=== PATIENT | female | born 1985 | race Two or more races ===

== ENCOUNTER 2023-08-30 02:36 | Emergency (ER) | payer BC, OTHER ==
[~2023-08-30] VITALS: Ht 165.1 cm; Wt 59.0 kg
[2023-08-30] MEDS ORDERED: IV NORMAL SALINE 1000 ML BAG IV ONE ×2 (03:00→04:00)
[2023-08-30] MEDS ORDERED: ONDANSETRON 4 MG/2 ML VIAL IV ONE (03:00)
[2023-08-30] MEDS ORDERED: HYDROMORPHONE 1 MG/1 ML DISP.SYRIN IV ONE (03:00)
[2023-08-30] MEDS ORDERED: HYDROMORPHONE 1 MG/1 ML DISP.SYRIN ONE (03:02)
[2023-08-30] MEDS ORDERED: ONDANSETRON 4 MG/2 ML VIAL ONE (03:02)
[2023-08-30 03:03] LABS: *BILIRUBIN,URIN NEGATIVE (NEGATIVE); *CLARITY,URINE CLEAR (CLEAR); *KETONES,URINE NEGATIVE (NEGATIVE); *PROTEIN,URINE NEGATIVE (NEGATIVE); *UROBILINOGEN,URINE 0.2 E.U./dl (NORMAL); LEUKOCYTE ESTERASE ,URINE NEGATIVE (NEGATIVE); NITRITE, URINE NEGATIVE (NEGATIVE); UGLUCOSE NEGATIVE (NEGATIVE)
[2023-08-30 03:05] LABS: *URINE HCG, QUAL NEGATIVE (NEGATIVE)
[2023-08-30 03:06] LABS: *BLOOD, URINE TRACE INTACT (NEGATIVE); *COLOR,URINE STRAW (YELLOW)
[2023-08-30 03:10] LABS: BASOPHILS % (AUTO) 0.5 % (0.0-2.0); EOSINOPHILS # (AUTO) 0.4 K/uL (0.0-0.7); EOSINOPHILS % (AUTO) 5.4 % (0.0-7.0); HEMATOCRIT 34.4 % (31.2-41.9); HEMOGLOBIN 11.8 g/dL (10.9-14.3); LYMPHOCYTES # (AUTO) 1.4 K/uL (0.8-4.8); LYMPHOCYTES % (AUTO) 16.3 % (20.5-51.5); MEAN CORPUSCULAR HEMOGLOBIN 32.2 uug (24.7-32.8); MEAN CORPUSCULAR HGB CONC 34 g/dL (32.3-35.6); MEAN CORPUSCULAR VOLUME 93.6 fL (75.5-95.3); MONOCYTES # (AUTO) 0.7 K/uL (0.1-1.30); MONOCYTES % (AUTO) 8.6 % (0.0-11.0); NEUTROPHILS # (AUTO) 5.8 K/uL (1.8-8.9); NEUTROPHILS % (AUTO) 69.2 % (38.5-71.5); PLATELET COUNT (AUTO) 227 K/uL (179-408); RED BLOOD CELL COUNT(AUTO) 3.67 MIL/uL (3.63-4.92); RED CELL DISTRIBUTION WIDTH 12.8 % (12.3-17.7); WHITE BLOOD COUNT (AUTO) 8.4 K/uL (3.8-11.8)
[2023-08-30 03:11] LABS: DIFFERENTIAL COMMENT 1
[2023-08-30 03:14] LABS: BACTERIA,URINE NONE SEEN /HPF (NONE SEEN); RBC,URINE 0-3 /HPF (0-3); WBC,URINE NONE SEEN /HPF (0-3)
[2023-08-30 03:15] LABS: SQUAMOUS EPITHELIAL CELL,UR FEW /HPF (NONE SEEN)
[2023-08-30 03:22] LABS: ALBUMIN 3.7 g/dL (3.4-5.0); BILIRUBIN,DIRECT 0.2 mg/dL (0.0-0.2); BILIRUBIN,TOTAL 0.6 mg/dL (0.2-1.0); CALCIUM 8.6 mg/dL (8.5-10.1); CREATININE 0.6 mg/dL (0.6-1.3); POTASSIUM 3.3 mmol/L (3.5-5.1); TOTAL PROTEIN, SERUM 7.3 g/dL (6.4-8.2)
[2023-08-30] MEDS ORDERED: IV NORMAL SALINE 250 ML IV ONE (03:26)
[2023-08-30] MEDS ORDERED: IOHEXOL 300MG/ML 100 ML INFUS..BTL ONE (03:26)
[2023-08-30] MEDS ORDERED: SWABABLE VALVE TRANSFER SET EA MC ONE (03:26)
[2023-08-30] MEDS ORDERED: KETOROLAC TROMETHAMINE 15 MG INJ IVP ONE (10:00)
[2023-08-30] MEDS ORDERED: METOCLOPRAMIDE HCL 10 MG/2 ML VIAL IV ONE (10:00)
[2023-08-30] MEDS ORDERED: METOCLOPRAMIDE HCL 10 MG/2 ML VIAL ONE (10:17)
[2023-08-30] MEDS ORDERED: KETOROLAC TROMETHAMINE 15 MG INJ ONE (10:17)
[2023-08-30 12:01] VITALS: BP 110/59; O2SAT 99
== END 2023-08-30 12:01 | disposition home or self-care (01) ==
LOC: ER 02:38
DX: R10.13 Epigastric pain (principal); R19.7 Diarrhea, unspecified; E87.1 Hypo-osmolality and hyponatremia; R11.2 Nausea with vomiting, unspecified; K59.00 Constipation, unspecified; E87.6 Hypokalemia
CPT/HCPCS: 99285; 74177; 96374; 96361; 96375; 76705; 80076; 80048; 81001; 84703; 83690; 85025; 36415; J1885; J2765; J2405; Q9967; J1170; J7040 ×2; A4606; A4663